=== PATIENT | female | born 1975 | race Caucasian/White ===

== ENCOUNTER 2018-04-21 08:51 | Emergency (ER) | payer MEDICARE, MEDICAID ==
[~2018-04-21] VITALS: Ht 172.7 cm; Wt 61.4 kg
[2018-04-21 09:04] VITALS: BP 151/98
[2018-04-21] MEDS ORDERED: ONDA4TAB9 SL (09:29)
== END 2018-04-21 10:03 | disposition home or self-care (01) ==
LOC: ER 08:52
DX: F29 Unspecified psychosis not due to a substance or known physiological condition (principal); G89.29 Other chronic pain; R10.9 Unspecified abdominal pain; Z59.0 Homelessness; Z88.8 Allergy status to other drugs, medicaments and biological substances
CPT/HCPCS: 99283